=== PATIENT | male | born 1960 ===

== ENCOUNTER → 2025-04-13 | Day surgery (SDC) | payer OTHER ==
[2025-04-05 08:58] LABS: URINE APPEARANCE Clear; URINE BILIRRUBIN Negative (NEGATIVE); URINE BLOOD Trace; URINE COLOR Yellow; URINE GLUCOSE Negative (NEGATIVE); URINE KETONE Negative (NEGATIVE); URINE LEUKOCYTE Negative; URINE NITRATE Negative; URINE PROTEIN Negative (NEGATIVE); URINE UROBILINOGEN 0.2 E.U./dl
[2025-04-05 09:02] LABS: BASO % 0.8 % (0.1-1.2); EOS # 0.06 (0.04-0.54); EOS % 0.9 % (0.7-7.0); LYMPH # 1.49 (1.18-3.74); LYMPH % 22.7 % (19.3-53.1); MEAN PLATELET VOLUME 11.40 fl (9.4-12.4); MONO # 0.55 (0.24-0.82); MONO % 8.4 % (4.7-12.5); NEUT # 4.36 (1.56-6.13); NEUT % 66.6 % (34.0-71.1); RED CELL DISTRIBUTION WIDTH 13.4 % (11.6-14.4); URINE RBC 7.4 uL (0.0-20.8)
[2025-04-05 09:18] VITALS: BP 113/70
[2025-04-05 09:25] LABS: INR 1.06
[2025-04-05 09:39] LABS: ALT/SGPT 27.0 U/L (12-78); AST/SGOT 21.0 U/L (15-37); BILIRUBIN TOTAL 0.94 mg/dL (0.3-1.2); BUN CREA RATIO 12.0 (7.0-25.0); CREATININE SERUM 1.02 mg/dL (0.70-1.30); GFR 73.76; GLOBULINA 2.9 G/DL (2.4-3.5); GLUCOSE FASTING 89.0 mg/dL (65-100); OSMOLALITY SERUM 286.0 MOSM/KG (275-295); URINE BACTERIA 1.1 uL (0.0-1933); URINE CAST 0.00 uL (0.0-1.40); URINE EPITHELIAL CELLS 1.2 uL (0.0-38.8); URINE WBC 1.6 uL (0.0-23.2)
[~2025-04-13] VITALS: Ht 170.2 cm; Wt 81.6 kg
[~2025-04-13] MED LIST: ABILIFY5 MG PO; BUPIVACAINE HCL/MPF 0.5% 30ML VIAL ONE; BUSPIRONE HCL5 MG PO; CEFAZOLIN SODIUM 1,000 MG VIAL IV ONE; CEFAZOLIN SODIUM 1,000 MG VIAL IV SCH; CEFAZOLIN SODIUM 1,000 MG VIAL ONE; DOLOGESIC CAPLE1 TAB PO; FAMOTIDINE/PF 20 MG/10 ML SYRINGE IV SCH; FAMOTIDINE/PF 20 MG/2 ML VIAL ONE; MORPHINE SULFATE 4 MG/ML VIAL IV ONE; RESTORIL30 M1 PO; ZOLOFT50 MG PO
[2025-04-13 22:49] VITALS: BP 11/69; O2SAT 100
== END | disposition home or self-care (01) ==
LOC: ADM 04-05 08:00 → CIR.AMB 06:55
PROVIDERS: ATTEND Specialist
DX: K40.30 Unilateral inguinal hernia, with obstruction, without gangrene, not specified as recurrent (principal)